=== PATIENT | male | born 1960 | race Two or more races ===

== ENCOUNTER 2017-09-17 11:27 | Emergency (ER) | payer OTHER ==
[~2017-09-17] VITALS: Ht 167.6 cm; Wt 73.9 kg
[2017-09-17 11:32] VITALS: BP 139/85; Ht 167.6 cm; Wt 73.9 kg
== END 2017-09-17 13:08 | disposition home or self-care (01) ==
LOC: ED 11:27
DX: M75.92 Shoulder lesion, unspecified, left shoulder (principal)

== ENCOUNTER 2017-10-28 10:33 | Emergency (ER) | payer OTHER ==
[~2017-10-28] VITALS: Ht 167.6 cm; Wt 74.8 kg
[2017-10-28 10:39] VITALS: Ht 167.6 cm; Wt 74.8 kg
[2017-10-28 11:21] VITALS: BP 154/90
== END 2017-10-28 11:21 | disposition home or self-care (01) ==
LOC: ED 10:33
DX: M75.82 Other shoulder lesions, left shoulder (principal)

== ENCOUNTER 2017-10-30 10:38 | Emergency (ER) | payer OTHER ==
[~2017-10-30] VITALS: Ht 167.6 cm; Wt 74.8 kg
[2017-10-30 10:45] VITALS: BP 133/82; Ht 167.6 cm; Wt 74.8 kg
== END 2017-10-30 11:09 | disposition home or self-care (01) ==
LOC: ED 10:38
DX: Z02.79 Encounter for issue of other medical certificate (principal); S46.912D Strain of unspecified muscle, fascia and tendon at shoulder and upper arm level, left arm, subsequent encounter; X58.XXXD Exposure to other specified factors, subsequent encounter